=== PATIENT | female | born 1985 | race Caucasian/White ===

== ENCOUNTER 2018-01-09 18:35 | Emergency (ER) | payer MEDICARE, OTHER ==
[~2018-01-09] VITALS: Ht 142.2 cm; Wt 63.5 kg
[~2018-01-09 18:35] MED LIST: ALPR1 PO; Cyclobenzaprine5 MG PO; METO25ER PO; METO50ER PO; Norco 5-325 Ta1 EACH PO; Ultram50 MG PO
[2018-01-09] MEDS ORDERED: Norco 5-325 Ta1 EACH PO (19:33)
== END 2018-01-09 21:20 | disposition home or self-care (01) ==
LOC: ER 18:35
DX: M48.54XA Collapsed vertebra, not elsewhere classified, thoracic region, initial encounter for fracture (principal); I10 Essential (primary) hypertension; Z87.891 Personal history of nicotine dependence
CPT/HCPCS: 72100; 99283

== ENCOUNTER 2018-06-13 12:18 | Emergency (ER) | payer OTHER, MEDICARE ==
[~2018-06-13] VITALS: Ht 152.4 cm; Wt 70.3 kg
[2018-06-13] MEDS ORDERED: Toprol Xl50 MG PO (12:47)
== END 2018-06-13 13:02 | disposition home or self-care (01) ==
LOC: ER 12:18
DX: H43.11 Vitreous hemorrhage, right eye (principal); I10 Essential (primary) hypertension; Z87.891 Personal history of nicotine dependence
CPT/HCPCS: 99283

== ENCOUNTER 2020-10-08 17:04 | Emergency (ER) | payer MEDICARE ==
[~2020-10-08] VITALS: Ht 142.2 cm; Wt 81.7 kg
[~2020-10-08 17:04] MED LIST changes: +Bactrim Ds Tab1 EACH PO; +CEPH500 PO; +Toprol Xl50 MG PO
[2020-10-08] MEDS ORDERED: Cleocin HCl150 MG PO (19:33)
== END 2020-10-08 19:48 | disposition home or self-care (01) ==
LOC: ER 17:04
DX: L02.511 Cutaneous abscess of right hand (principal)
CPT/HCPCS: 10060; 99282-25

== ENCOUNTER 2020-10-27 07:11 | Emergency (ER) | payer MEDICARE ==
[~2020-10-27] VITALS: Ht 142.2 cm; Wt 68.0 kg
[~2020-10-27 07:11] MED LIST changes: +Cleocin HCl150 MG PO
[2020-10-27 07:48] LABS: BASOPHILS ABSOLUTE AUTO 0.07 K/mm3 (0.00-0.23); BASOPHILS PERCENT AUTO 1 % (0-2); EOSINOPHILS ABSOLUTE AUTO 0.06 K/mm3 (0.00-0.68); EOSINOPHILS PERCENT AUTO 1 % (0-6); Hematocrit 44.1 % (33.0-51.0); Hemoglobin 15.6 g/dL (11.5-16.0); IMMATURE GRAN ABSOLUTE AUTO 0.03 K/mm3 (0.00-0.10); IMMATURE GRAN PERCENT AUTO 0 % (0-1); LYMPHOCYTES PERCENT AUTO 24 % (21-46); MONOCYTES ABSOLUTE AUTO 0.86 K/mm3 (0.16-1.47); MONOCYTES PERCENT AUTO 10 % (4-13); Mean Corpuscular HGB 30.6 pg (26.0-34.0); Mean Corpuscular HGB Conc 35.4 g/dL (31.5-36.5); Mean Corpuscular Volume 87 fL (80-100); Mean Platelet Volume 8.2 fL (9.1-12.4); NEUTROPHILS ABSOLUTE AUTO 5.45 K/mm3 (1.96-9.15); NEUTROPHILS PERCENT AUTO 64 % (41-73); Platelet Count 241 K/mm3 (150-400); RDW Coefficient Variation 11.9 % (11.7-14.2); RDW Standard Deviation 38.2 fL (35.1-46.3); White Blood Cell Count 8.47 K/mm3 (4.00-11.30)
[2020-10-27 08:08] LABS: Alanine Aminotransfer (ALT/SGP 102 U/L (12-78); Albumin, Blood 4.3 g/dL (3.4-5.0); Albumin/Globulin Ratio 1.4 (0.8-1.8); Alk Phos 191 U/L (50-136); Anion Gap 7 mmol/L (6-16); Aspartate Aminotrans (AST/SGOT 65 U/L (12-37); Bilirubin, Total 0.4 mg/dL (0.1-1.0); Blood Urea Nitrogen 12 mg/dL (8-24); Bun/Creatinine Ratio 24.6 (12.0-20.0); CO2, Blood 24 mmol/L (21-32); Chloride, Blood 109 mmol/L (98-108); Creatinine, Blood 0.49 mg/dL (0.40-1.00); Globulin, Blood 3.1 g/dL (2.2-4.0); Glomerular Filtration Rate >60 (60-); Glucose, Blood 114 mg/dL (70-99); Potassium, Blood 3.8 mmol/L (3.5-5.5); Sodium, Blood 140 mmol/L (136-145); Total Protein, Blood 7.4 g/dL (6.4-8.2)
== END 2020-10-27 08:41 | disposition home or self-care (01) ==
LOC: ER 07:11
PROVIDERS: Emergency Medicine
DX: U07.1 COVID-19 (principal); Z87.891 Personal history of nicotine dependence
CPT/HCPCS: 36415; 71045; 80053; 85025; 99283-25

== ENCOUNTER 2021-02-28 17:00 | Emergency (ER) | payer MEDICARE ==
[~2021-02-28] VITALS: Ht 142.2 cm; Wt 68.0 kg
[2021-02-28 18:45] LABS: BASOPHILS ABSOLUTE AUTO 0.05 K/mm3 (0.00-0.23); BASOPHILS PERCENT AUTO 1 % (0-2); EOSINOPHILS ABSOLUTE AUTO 0.05 K/mm3 (0.00-0.68); EOSINOPHILS PERCENT AUTO 1 % (0-6); Hematocrit 46.1 % (33.0-51.0); Hemoglobin 16.6 g/dL (11.5-16.0); IMMATURE GRAN ABSOLUTE AUTO 0.01 K/mm3 (0.00-0.10); IMMATURE GRAN PERCENT AUTO 0 % (0-1); LYMPHOCYTES ABSOLUTE AUTO 1.96 K/mm3 (0.84-5.20); LYMPHOCYTES PERCENT AUTO 28 % (21-46); MONOCYTES ABSOLUTE AUTO 0.75 K/mm3 (0.16-1.47); MONOCYTES PERCENT AUTO 11 % (4-13); Mean Corpuscular HGB 30.5 pg (26.0-34.0); Mean Corpuscular Volume 85 fL (80-100); Mean Platelet Volume 8.3 fL (9.1-12.4); NEUTROPHILS ABSOLUTE AUTO 4.29 K/mm3 (1.96-9.15); NEUTROPHILS PERCENT AUTO 60 % (41-73); Platelet Count 270 K/mm3 (150-400); RDW Coefficient Variation 12.5 % (11.7-14.2); Red Blood Cell Count 5.45 M/mm3 (3.80-5.20); White Blood Cell Count 7.11 K/mm3 (4.00-11.30)
[2021-02-28 18:55] LABS: Alanine Aminotransfer (ALT/SGP 198 U/L (12-78); Albumin, Blood 4.5 g/dL (3.4-5.0); Albumin/Globulin Ratio 1.3 (0.8-1.8); Alk Phos 200 U/L (50-136); Anion Gap 6 mmol/L (6-16); Aspartate Aminotrans (AST/SGOT 391 U/L (12-37); Bilirubin, Total 0.6 mg/dL (0.1-1.0); Blood Urea Nitrogen 7 mg/dL (8-24); Bun/Creatinine Ratio 11.6 (12.0-20.0); CO2, Blood 25 mmol/L (21-32); Calcium, Blood 9.1 mg/dL (8.5-10.1); Chloride, Blood 110 mmol/L (98-108); Globulin, Blood 3.4 g/dL (2.2-4.0); Glomerular Filtration Rate >60 (60-); Glucose, Blood 105 mg/dL (70-99); Potassium, Blood 3.8 mmol/L (3.5-5.5); Sodium, Blood 141 mmol/L (136-145); Total Protein, Blood 7.9 g/dL (6.4-8.2)
[2021-02-28 22:01] LABS: International Normalized Ratio 1.07; Prothrombin Time Results 11.5 Sec (9.7-11.5)
[2021-02-28] MEDS ORDERED: ONDA4 PO (22:10)
[2021-02-28] MEDS ORDERED: OXYC5 PO (22:10)
[2021-02-28] MEDS ORDERED: SUCR1 PO (22:28)
[2021-03-02 09:09] LABS: HBSAG SCREEN Negative (Negative); HEP A AB, IGM Negative (Negative); HEP B CORE AB, IGM Negative (Negative); HEP C VIRUS AB <0.1 (0.0-0.9)
== END 2021-02-28 23:15 | disposition home or self-care (01) ==
LOC: ER 17:00
PROVIDERS: Emergency Medicine; Physician Assistant
DX: R10.13 Epigastric pain (principal); R74.01 Elevation of levels of liver transaminase levels; Z87.891 Personal history of nicotine dependence
CPT/HCPCS: 74177; 80053; 80074; 83690; 84703; 85025; 85610; 85730; 96374-59; 96375; 96376; 99284-25; A9270; C9113; J1170; J2405; J7030; Q9967

== ENCOUNTER 2023-09-18 23:47 | Emergency (ER) | payer MEDICARE ==
[~2023-09-18] VITALS: Ht 142.2 cm; Wt 68.0 kg
[~2023-09-18 23:47] MED LIST changes: +ONDA4 PO; +OXYC5 PO; +SUCR1 PO
[2023-09-19 00:14] VITALS: BP 137/112
[2023-09-19] MEDS ORDERED: SULTRIDS PO ×2 (02:46→10:24)
[2023-09-19] MEDS ORDERED: AMOCLA875 PO ×2 (02:46→10:23)
== END 2023-09-19 02:58 | disposition home or self-care (01) ==
LOC: ER 23:47
DX: L03.213 Periorbital cellulitis (principal); H10.9 Unspecified conjunctivitis; H15.002 Unspecified scleritis, left eye; Z87.891 Personal history of nicotine dependence
CPT/HCPCS: 99282; A9270